=== PATIENT | female | born 1945 | race Caucasian/White ===

== ENCOUNTER 2016-12-07 20:40 | Emergency (ER) | payer MEDICARE ==
[~2016-12-07] VITALS: Ht 154.9 cm; Wt 61.4 kg
[~2016-12-07 20:40] MED LIST: ALPR0.5T8 PO; AMLO5TAB2 PO; ATEN25TA PO; ATOR40TA69 PO; ESTR1TAB24 PO; HYDR25TA4 PO; HYOS0.1216 PO; OMEP40CA36 PO
--- NOTE | 2016-12-07 20:52 | ED.REPORT ---
HPI-Chest Pain 40 and Over Date of Service Dec 07, 2016 ED Provider: Ivan Liriano MD Pt is a 71 y/o female w/ a hx of HTN, hyperlipidemia, presenting to the ED via EMS with her daughter c/o near-syncope onset prior to arrival. The patient was eating dinner and had 1.5 martinis with her daughter and suddenly became lightheaded, generally weak, and diaphoretic with associated bilateral upper and lower extremity numbness followed by 1 episode of nausea and vomiting. This entire episode lasted 20 minutes. She states she doesn't drink alcohol often and hadn't had anything to eat throughout the day. Pt denies focal numbness or weakness, speech change, constance chest pain, CASTRO, SOB. She also reports that she has irritable bowel syndrome and has had a lot of diarrhea over the last couple of days. Nursing Notes Stated Complaint: CHEST PAIN Nursing Notes Reviewed: Yes Allergies: Coded Allergies: morphine (Verified Adverse Reaction, Severe, nausea, 12/07/16) Scheduled Amlodipine (Amlodipine) 5 Mg Tablet 5 MG PO DAILY Atenolol (Atenolol) 25 Mg Tablet 25 MG PO DAILY Atorvastatin Calcium (Atorvastatin Calcium) 40 Mg Tablet 40 MG PO DAILY Estradiol (Estradiol) 1 Mg Tablet 1 MG PO DAILY Hydrochlorothiazide (Hydrochlorothiazide) 25 Mg Tablet 25 MG PO DAILY Omeprazole (Omeprazole) 40 Mg Capsule.dr 40 MG PO DAILY Potassium Chloride ER (K-Tab) 10 Meq Tablet 10 MEQ PO DAILY Scheduled PRN Alprazolam (Alprazolam) 0.5 Mg Tablet 0.5 MG PO TID PRN PRN For Anxiety Miscellaneous Medications Hyoscyamine (Hyoscyamine) 0.125 Mg Tablet 0.125 MG PO General Time Seen by MD: 20:50 Chief Complaint Other (near-syncope) Hx Obtained From: Patient, EMS Arrived By: Ambulance Sudden in Onset?: Yes Onset Occurred: Just prior to arrival Symptom Duration: Since onset Past Medical History Past Medical History HTN, Ulcer Hx H. pylori Hyperlipidemia Past Surgical History Ovarian cysts x4 Hysterectomy Neck tumor Cholecystitis Smoking History Former Smoker Ambulatory Status Independent Review of Systems Constitutional: Reports: Weakness - generalized, Denies: Chills, Fever Respiratory: Denies: Non-productive cough, Shortness of breath Cardiovascular: Denies: Chest pain, Dyspnea on exertion GI: Reports: Nausea, Vomiting, Denies: Abdominal pain Neurologic: Reports: Lightheaded, Numbness, Denies: Change LOC, Focal weakness Complete sys rev & neg: except as marked. Physical Exam Initial Vital Signs Vital Signs (First) Date Time Temp Pulse Resp B/P Pulse Ox O2 Delivery O2 Flow Rate FiO2 12/07/16 20:56 37.1 60 14 135/61 Room Air 12/07/16 23:58 96 Initial VS: Reviewed, Vital signs normal Head / Eyes: Atraumatic, Normocephalic, PERRL Neck: Supple, Full range of motion Extremities: Vascular intact, Neuro intact, No swelling, No tenderness Skin: Warm, Dry, No cyanosis Neurologic: Alert, Oriented, Nonfocal Psychiatric: Mood/affect normal, Behavior normal, Normal thought content General/Constitutional: Awake, Alert, No acute distress, Well appearing, Cooperative, Not toxic appearing Distress / Hydration: Positive: Dehydration mild Respiratory / Chest: Atraumatic, Breath sounds NL, Breath sounds = bilat, No respiratory distress, No rales, No rhonchi, No wheezing, No retractions, No stridor, No chest tenderness, No chest wall deformity, No crepitus Cardiovascular: Heart rate NL, Regular rhythm, Heart sounds NL, No gallop, No murmurs, No rubs, Cap refill not delayed, Peripheral circulation NL Abdomen: Atraumatic, Soft, Non-tender, No guarding, No rebound, No palpable mass ENT: Atraumatic, Airway patent Mouth: Positive: Mucous membranes dry (mild) Interpretation & Diagnostics Lab Results Interpretation Result Diagram: 12/07/16204912/07/162049 Test 12/07/16 20:50 White Blood Count 10.5th/mm3 (3.8-10.1) Red Blood Count 5.31mil/mm3 (3.90-5.20) Hemoglobin 15.1g/dL (12.0-15.6) Hematocrit 43.6% (35.0-46.0) Mean Corpuscular Volume 82.1fL (81-100) Mean Corpuscular Hemoglobin 28.4pg (27.0-35.0) Mean Corpuscular Hemoglobin Concent 34.6% (32.0-37.0) Red Cell Distribution Width 13.9% (12.3-15.4) Platelet Count 343bil/L (150-400) Neutrophils (%) (Auto) 50.1% (40-74) Lymphocytes (%) (Auto) 36.3% (14-46) Monocytes (%) (Auto) 8.2% (4-12) Eosinophils (%) (Auto) 4.4% (0-5) Basophils (%) (Auto) 0.8% (0-3) Hold Purple Top Tube Received (Received) Hold Blue Top Tube Received (Received) Sodium Level 137mEq/L (134-144) Potassium Level 2.8mEq/L (3.5-5.2) Chloride Level 95mEq/L (97-108) Carbon Dioxide Level 19mmol/L (18-29) Blood Urea Nitrogen 14mg/dL (8-27) Creatinine 0.81mg/dL (0.57-1.00) Estimat Glomerular Filtration Rate 100mL/min (>59) Glucose Level 123mg/dL (60-99) Calcium Level 9.5mg/dL (8.5-10.1) Magnesium Level 2.3mg/dL (1.6-2.6) Total Bilirubin 0.4mg/dL (0.0-1.2) Aspartate Amino Transf (AST/SGOT) 25U/L (0-50) Alanine Aminotransferase (ALT/SGPT) 26U/L (0-32) Alkaline Phosphatase 102U/L (25-165) Troponin T 0.010ug/L (0.0-0.011) Total Protein 7.5g/dL (6.4-8.4) Albumin 4.5g/dL (3.4-5.0) Hold Red Top Tube Received (Received) Hold [place] Top Tube Received (Received) ECG Interpretation ECG Interpretation: Sinus rhythm rate 60 Prolonged [place] interval T wave inversion in V1 and V2 No prior available for comparison Time: 21:40 Interpreted by: ED physician Normal ECG Interpretation: No acute ischemic changes X-Ray Chest Interpretation View: Portable, 1 view Interpretation / Wet Read by: Wet read ED physician NL X-Ray Chest Findings: No infiltrate, No acute disease Re-Eval/Medical Decision Med Decision/Clinical Course Pt is a 71 y/o female w/ a hx of HTN, hyperlipidemia, presenting to the ED via EMS with her daughter c/o near-syncope onset prior to arrival. The patient was eating dinner and had 1.5 martinis with her daughter and suddenly became lightheaded, generally weak, and diaphoretic with associated bilateral upper and lower extremity numbness followed by 1 episode of nausea and vomiting. This entire episode lasted 20 minutes. She states she doesn't drink alcohol often and hadn't had anything to eat throughout the day. Pt denies focal numbness or weakness, speech change, constance chest pain, CASTRO, SOB. She also reports that she has irritable bowel syndrome and has had a lot of diarrhea over the last couple of days. Here in the emergency department the patient is afebrile stable vital signs and completely normal neurologic examination. She has had no head trauma and is not on any blood thinners. Labs notable as below: CBC: Borderline leukocytosis of 10.5, otherwise unremarkable CMP: Hypokalemia of 2.8, otherwise unremarkable Troponin negative CXR: Obtained, reviewed and interpreted by myself shows no evidence of acute infiltrates, effusions or pneumothorax. Cardiac and mediastinal silhouette normal. No bony or soft tissue abnormalities. Patient appeared somewhat dehydrated and had positive orthostatic vital signs. She was treated with 2 L of IV fluids and oral potassium replacement. She remained completely neurologically intact without any findings suggestive of acute stroke. I opted not to obtain imaging of her brain as she did not strike her head and is not on any blood thinners. Presentation is not suggestive of seizure. No significant electrolyte abnormalities other than hypokalemia which I suspect is related to poor dietary intake and diarrhea. No findings at this time suggestive of acute infectious etiology such as meningitis or encephalitis. Patient nontoxic in appearance. Patient reported significant symptomatic improvement after receiving IV fluids. EKG demonstrated no evidence of arrhythmia and I am unconvinced of any acute ischemic changes, negative troponin is reassuring. In the absence of chest pain, tachypnea, tachycardia I am unconvinced that her event was related to pulmonary embolism or acute coronary syndrome. She requested to be discharged. I feel that this is appropriate. Follow-up and precautions reviewed in detail and she was discharged in good condition. She is provided with a 14 day supply of oral potassium and advised to call her primary care physician first thing tomorrow to arrange for follow-up and repeat potassium check. Time of Eval: 23:03 Patient Status: Condition resolved, Complete relief Re-Evaluation/Progress Note: Pt rechecked. Informed pt of plan for treatment. Pt understands and agrees with plan for treatment. F/U instructions and RTER warnings given. All questions addressed. Counseled Regarding: Diagnosis, Lab results, Need for follow-up, When/why to return to ED Discharge & Departure Primary Impression: Dehydration Additional Impressions: Nausea & vomiting Vomiting type: unspecified Vomiting Intractability: non-intractable Qualified Code: R11.2 - Nausea with vomiting, unspecified Lightheadedness Hypokalemia Disposition: Home Discharge Condition All VS Reviewed: Yes Condition: Stable Patient Instructions: Dehydration (ED), Hypokalemia (ED) Additional Instructions: Thank you for seeking care at the emergency room. It is difficult for us to make definitive diagnoses in the ED but we believe that you experienced symptoms caused by dehydration. Our primary goal today in the ED was to evaluate you for any life-threatening conditions. Your evaluation was reassuring. Your labs were normal other than low potassium. There was no sign of heart attack. You will be discharged with a prescription for a potassium supplement. Please take this as directed. Try to stay well hydrated and eat at least breakfast or lunch along with dinner every day. You should follow-up with your primary doctor in the next week. Call your doctor tomorrow to set up an appointment. Discuss the potassium medication and today's visit and findings. You should return to the ED immediately if you develop fevers, vomiting, loss of consciousness, heart palpitations, severe headache, shortness of breath, chest pain, lightheadedness, weakness or any other concerning signs or symptoms. Thank you for letting us partake in your care today. Referrals: Juan Carlos Wilson DO (PCP) Sofiya Attestation Portions of this note were transcribed by Huseyin Smith. I, Dr. Liriano personally performed the history, physical exam and medical decision-making; I reviewed and confirmed the accuracy of the information in the transcribed note. Signed by Sofiya Fuller, 12/07/16 - 2199 copies to: Juan Carlos Wilson Beck O MD Dec 07, 2016 20:52 HUSEYIN SMITH Dec 07, 2016 21:31
[2016-12-07 20:56] VITALS: BP 135/61; PULSE 60; RESP 14
[2016-12-07] MEDS ORDERED: 0.9% Sodium Chloride 1,000 ML IV ONE (22:02)
[2016-12-07 22:08] LABS: BASOPHILS % (AUTO) 0.8 % (0-3); EOSINOPHILS % (AUTO) 4.4 % (0-5); MONOCYTES % (AUTO) 8.2 % (4-12); Mean Corpuscular Hemoglobin 28.4 pg (27.0-35.0); Mean Corpuscular Volume 82.1 fL (81-100); NEUTROPHILS % (AUTO) 50.1 % (40-74); Platelet Count 343 bil/L (150-400)
[2016-12-07 22:19] LABS: TROPONIN T 0.01 ug/L (0.0-0.011)
[2016-12-07 22:30] LABS: Magnesium 2.3 mg/dL (1.6-2.6)
[2016-12-07] MEDS ORDERED: Potassium Chloride 20 mEq SR Tablet PO ONE (23:00)
[2016-12-07] MEDS ORDERED: POTA10TA PO (23:02)
[2016-12-07 23:58] VITALS: BP 132/74; PULSE 72; RESP 16; O2SAT 96
--- NOTE | 2016-12-08 09:16 | DRSVH ---
PROCEDURE: X-RAY CHEST ONE VIEW, PORTABLE ([id number]) INDICATIONS: SHORTNESS OF BREATH TECHNIQUE: One view of the chest was acquired. COMPARISON: None. FINDINGS: Surgical changes and devices: None. Lungs and pleura: No pleural effusions or pneumothorax. Lungs are clear. Mediastinum: Mediastinal contours appear normal. Heart size is normal. Bones and chest wall: No suspicious bony lesions. Overlying soft tissues appear unremarkable. IMPRESSION: No acute cardiopulmonary disease. Dictated by: Ranjith Wong [facility] Interpreted: Yumiko Broussard MD on 12/08/2016 at 9:15 Transcribed by: MALCOLM on 12/08/2016 at 9:15 Approved by: Yumiko Broussard MD, PhD on 12/08/2016 at 17:01
== END 2016-12-08 | disposition home or self-care (01) ==
LOC: SED 20:40
DX: E86.0 Dehydration (principal); R11.2 Nausea with vomiting, unspecified; R42 Dizziness and giddiness; E87.6 Hypokalemia; R07.9 Chest pain, unspecified; I10 Essential (primary) hypertension; E78.5 Hyperlipidemia, unspecified; Z87.891 Personal history of nicotine dependence; Z88.5 Allergy status to narcotic agent
CPT/HCPCS: 36415; 71010; 80053; 82948; 83735; 84484; 85025; 93005; 96360; 99285; J7030